=== PATIENT | male | born 1970 | race Caucasian/White ===

== ENCOUNTER 2024-12-12 22:00 | Emergency (ER) | payer OTHER, SELFPAY ==
[2024-12-12 22:04] VITALS: BP 169/109
[2024-12-12 22:48] LABS: Hematocrit 41.2 % (39.0-52.0); Hemoglobin 13.8 g/dL (13.0-18.0); Mean Corp Hgb Conc. 33.5 g/dL (33.0-37.0); Mean Corpuscular Volume 79.5 fL (80.0-94.0); Nucleated Red Blood Cells % 0 % (-); Platelet Count 211 10^3/uL (130-400); Red Cell Dist. Width 14.5 % (11.5-14.5)
[2024-12-12 23:08] LABS: Blood Urea Nitrogen 11 mg/dl (9-20); Calcium 9.4 mg/dl (8.4-10.2); Carbon Dioxide 23 mmol/L (22-30); Chloride 104 mmol/L (98-107); Glucose 179 mg/dl (70-99); Potassium 3.7 mmol/L (3.5-5.1); Sodium 138 mmol/L (135-145); eGFR > 60.00
[2024-12-13 00:24] VITALS: BP 140/94
--- NOTE | 2024-12-13 05:11 | ED.GENMED ---
History of Present Illness
General
Chief Complaint: Crisis Evaluation
Source: patient
Exam Limitations: none
Time Seen by Provider: 12/13/24 00:17
Nursing documentation reviewed up to this point in time: agreed with
History of Present Illness
History of Present Illness:
Note:
CHIEF COMPLAINT(S)
The patient, a 54-year-old male, presented due to an episode of suicidal ideation.
HISTORY OF PRESENT ILLNESS
The patient reports experiencing suicidal thoughts a couple of weeks ago and had contemplated a plan to hang himself. Recent stressors include a strained relationship with his , who has been drinking heavily. The patient isolated himself, and
police intervention occurred. The patient acknowledges the need for psychiatric evaluation and is considering voluntary admission to avoid involuntary commitment. 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
criminal mischief have exacerbated his distress. Additionally, the patient is experiencing profound stress due to having to face a court date soon. His son, a high school gigi, has been exposed to these distressing events.
PAST MEDICAL AND SURGICAL HISTORY
The patient is a known alcoholic and has a history of epilepsy and diabetes. He also reports having a heart condition.
SOCIAL DETERMINANTS AFFECTING HEALTH
The patient is dealing with significant stress due to job loss and legal issues. Alcohol use is regular, including daily intake and having had six drinks at a recent work event. The patient also smokes marijuana daily.
CHRONIC MEDICAL CONDITIONS SIGNIFICANTLY AFFECTING CARE
1. Alcohol use disorder
2. Epilepsy
3. Diabetes
4. Heart condition
MEDICATIONS
The patient takes 300 mg of lamotrigine twice a day for seizures, along with medications for diabetes, hypertension, and possibly heart condition.
SOCIAL HISTORY
Alcohol is consumed daily, with the last intake being six drinks at a work function. The patient also smokes marijuana daily and has a history of cigarette use, although it is not currently active.
PHYSICAL EXAM
General: Alert, no acute distress.
Skin: Warm, dry.
Head: Normocephalic, atraumatic.
Neck: Supple, trachea midline.
Eye Ears, nose, mouth and throat: Oral mucosa moist.
Cardiovascular: Normal peripheral perfusion, No edema.
Respiratory: Respirations are non-labored.
Gastrointestinal: Abdomen nondistended
Back: Normal range of motion, Normal alignment.
Musculoskeletal: Normal range of motion, normal strength.
Neurological: Alert and oriented to person, place, time, and situation, No focal neurological deficit observed.
Psychiatric: Cooperative, appropriate mood & affect.
PROBLEM LIST
Acute:
1. Suicidal ideation
2. Stress related to family and legal issues
Chronic:
1. Alcohol use disorder
2. Epilepsy
3. Diabetes
4. Heart condition
PLAN
- The patient is advised to sign himself in voluntarily for psychiatric evaluation to avoid involuntary commitment.
- Referral to a psychiatric facility for further evaluation and treatment.
DIFFERENTIAL DIAGNOSIS
The Differential Diagnosis includes, in no particular order and is not limited to:
1. Major depressive disorder
2. Bipolar disorder
3. Adjustment disorder with depressive mood
4. Alcohol use disorder with associated depressive symptoms
5. Anxiety disorder
6. Substance-induced mood disorder
7. Schizophrenia
8. Borderline personality disorder
9. Post-traumatic stress disorder
10. Organic mood disorder (related to epilepsy or other medical conditions)
Disposition:
SUMMARY OF ENCOUNTER
The patient, a 54-year-old male, presented with suicidal ideation following a recent job loss and impending legal issues requiring a court appearance. The patient has a history of past suicide attempts. During the consultation, it was determined
that he requires psychiatric care, and he has agreed to a voluntary admission to a psychiatric facility. The patient was advised that involuntary commitment would occur if he changed his decision.
DISPOSITION
The patient is to be transferred to a psychiatric facility for further evaluation and treatment voluntarily.
PLAN
Referral to a psychiatric facility for voluntary admission and evaluation.
PATIENT EDUCATION AND COUNSELING
The patient was counseled on the importance of seeking psychiatric evaluation to address his suicidal ideations and underlying stressors. He was informed about the procedures and support available to him at the psychiatric facility and advised on
the implications of refusing care.
MEDICAL DECISION MAKING
- Number and Complexity of Problems Addressed: Chronic conditions affecting care include alcohol use disorder, epilepsy, diabetes, and heart condition. Differential diagnosis suggests major depressive disorder, bipolar disorder, adjustment disorder
with depressive mood, alcohol use disorder with associated depressive symptoms, anxiety disorder, substance-induced mood disorder, schizophrenia, borderline personality disorder, post-traumatic stress disorder, and organic mood disorder.
- Care significantly affected by Social Determinants of Health: The patient is experiencing significant stress due to recent job loss and legal issues.
DIAGNOSIS
Major depressive disorder, recurrent episode, severe, without psychotic features (ICD-10: F33.2).
Alcohol use disorder, moderate (ICD-10: F10.20).
Review of Systems
Review of Systems
Allergies reviewed?: Yes
All Other Systems: ROS reviewed and negative except as documented in HPI and ROS
Psychiatric: Reports depression, anxiety and suicidal
Phy Exam
General Physical Exam
General Presentation: well appearing and no apparent distress
General Skin: warm and dry
General Habitus: normal
General Mental: alert
General Hydration: appears well hydrated
ENT Exam
ENT Exam: EOMI, pharynx normal, neck supple and normocephalic
Eye Exam
Eye Exam: PERRL, cornea clear and conjunctiva normal
Cardiovascular Exam
Cardiovascular Exam: regular rate/rhythm, no edema, no murmur and normal peripheral pulses
Pulmonary Exam
Pulmonary Exam: lungs clear, no respiratory distress, no rales, no crackles, no rhonchi, no stridor, no wheezing and no cough
Gastrointestinal Exam
Gastrointestinal Exam: normal bowel sounds, non tender, soft, no organomegaly, no pulsatile mass and non distended
Neurological Exam
Neurological Exam: alert, oriented x3, no motor deficits and speech normal
Musculoskeletal Exam
Musculoskeletal Exam: full ROM and no edema
Skin Exam
Skin Exam: normal color, warm/dry, no rash and no petechia
Psychiatric Exam
Psychiatric Exam: normal mood/affect
Course
Orders/Labs/Results
Orders:
Orders
12/12/24 22:22
Crisis Consult Urgent
Reason for Consult: + SI
12/12/24 22:41
Alcohol Urgent
Basic Metabolic Panel Urgent
Complete Blood Count/With Diff Urgent
Urine Drug Abuse Screen Urgent
Date Specimen was Collected: 12/12/24
Time Specimen was Collected: 22:23
12/12/24 23:55
ED Special Safety Observation ONCE
Observation level: One to Two
Abnormal Lab Results
12/12/24
22:41
MCV 79.5 L fL
(80.0-94.0)
MCH 26.6 L pg
(27.0-31.0)
Creatinine 0.6 L mg/dL
(0.7-1.3)
Glucose 179 H mg/dl
(70-99)
U Marijuana (THC) Screen Positive H
(Negative)
12/12/24 22:41
12/12/24 22:41
Vital Signs
Initial and Last Documented VS:
Initial Vital Signs
Temp Pulse Resp BP Pulse Ox
97.9 F 95 20 169/109 96
12/12/24 22:04 12/12/24 22:04 12/12/24 22:04 12/12/24 22:04 12/12/24 22:04
Last Documented Vital Signs
Temp Pulse Resp BP Pulse Ox
97.9 F 81 22 140/94 98
12/12/24 22:04 12/13/24 00:24 12/13/24 00:24 12/13/24 00:24 12/13/24 00:24
*Pulse Oximetry
SaO2: 98
Oxygen Mode of Delivery: Room air
Patient hypoxic: no
*Critical Care Note
Total Time (30-74mins, 75-104mins- exclusive of procedures): Not Applicable
ED Attending Note
-
Portions of this chart may have been created with voice recognition software.� Occasional wrong word or��sound alike� substitutions may have occurred due to the inherent limitations of voice recognition software.
Discharge Plan
Departure
Patient Disposition: Psych Facility
Date of Disposition: 12/13/24
Time of Disposition: 05:11
Condition: Fair
Discharge Problem:
Suicide attempt
Referrals:
Neel Portillo MD [Family Provider, [facility]]
Interventions
Interventions:
*Risk Screen - Suicide Last Done: 12/12/24 22:16
*General Assessment Last Done: 12/12/24 22:16
*Neglect/Abuse Screening Last Done: 12/12/24 22:16
*ED- Fall Risk Assessment Last Done: 12/12/24 22:16
*ED COVID-19 Vaccine History Last Done: 12/12/24 22:16
ED-Psychological Assessment Last Done: 12/12/24 22:52
Discharge Date and Time
Print Language: SINHALA
[2024-12-13 09:00] VITALS: BP 168/104; BMI 31.9
--- NOTE | 2024-12-13 09:00 | EDRN ---
this RN noticed that medication reconciliation was not performed for the patient and allergies were not recorded, this RN entered the pts room and the pt was calm, pleasant, and cooperative, the pt was agreeable to allowing this RN to obtain vital
signs, the pts blood pressure is elevated, Dr. Molina was notified and will also order AM medications, the pt offers no complaints at this time, the pts breakfast was ordered, awaiting for placement for the pt, will continue to monitor the pt closely
--- NOTE | 2024-12-13 09:41 | EDRN ---
the pts allergies were confirmed, this RN spoke to Dulce the pharmacist and will verify the pts daily medications
--- NOTE | 2024-12-13 10:46 | EDRN ---
Dr. Molina will be ordering the pts AM medications
[2024-12-13 11:37] VITALS: BP 168/104
[2024-12-13] MEDS: FLOMAX 0.4 MG TUBE (11:38)
[2024-12-13] MEDS: FARXIGA 10 MG PO (11:38)
[2024-12-13] MEDS: LAMICTAL 100 MG PO (11:38)
[2024-12-13] MEDS: GLUCOPHAGE 1000 MG PO (11:38)
[2024-12-13] MEDS: TOPROL XL 25 MG PO (11:38)
[2024-12-13] MEDS: PROTONIX 40 MG PO (11:38)
[2024-12-13 11:39] LABS: Glucose - Point of Care 227 mg/dl (70-99)
[2024-12-13 13:15] VITALS: BP 172/98
[2024-12-13 13:23] LABS: Glucose - Point of Care 124 mg/dl (70-99)
[2024-12-13 17:51] LABS: Glucose - Point of Care 142 mg/dl (70-99)
[2024-12-13] MEDS: LANTUS 0.2 UNITS SC (17:54)
[2024-12-13 18:49] VITALS: BP 167/95
[2024-12-13] MEDS: TYLENOL 650 MG PO (19:39)
[2024-12-13] MEDS: VALIUM 5 MG PO (19:40)
== END 2024-12-13 20:59 ==
LOC: EMR 22:00
PROVIDERS: CONSULT PHYSICIAN Psychiatry & Neurology Psychiatry; EMERGENCY PHYSICIAN Student in an Organized Health Care Education/Training Program; FAMILY PHYSICIAN Family Medicine
DX: T14.91XA Suicide attempt, initial encounter (principal); Y92.9 Unspecified place or not applicable; E11.9 Type 2 diabetes mellitus without complications; F10.20 Alcohol dependence, uncomplicated; F12.90 Cannabis use, unspecified, uncomplicated; F19.10 Other psychoactive substance abuse, uncomplicated; G40.909 Epilepsy, unspecified, not intractable, without status epilepticus; Z65.3 Problems related to other legal circumstances; Z87.891 Personal history of nicotine dependence
CPT/HCPCS: 99285; 80048; 80306; 82077; 82962; 85025; 99284

== ENCOUNTER 2025-01-19 16:01 | Emergency (ER) | payer OTHER, SELFPAY ==
[2025-01-19 16:09] VITALS: BP 204/117
--- NOTE | 2025-01-19 16:18 | ED.GENMED ---
History of Present Illness
General
Chief Complaint: Crisis Evaluation
Source: patient
Time Seen by Provider: 01/19/25 16:04
History of Present Illness
History of Present Illness:
54-year-old male presents to the emergency room with police after a 302 was filed with [facility]. Patient has a known history of bipolar disease. He spent quite some time at the [facility] recently after a suicide attempt in early
December. The 302 petition describes threatening behavior towards his family. Patient patient evidently left [facility] AGAINST MEDICAL ADVICE prior to finishing his treatment course. Patient is very aggravated and aggressive. He talks
about his rights being violated by being brought here. He feels that everyone around him is incompetent and not qualified. Patient describes being in [place] recently 'on the 6 floor' and being cleared by a psychiatrist there. Patient does
endorse aggressive behavior towards his family because 'I am very angry'.
Phy Exam
Physical Exam
Physical Exam:
General: Awake, Alert, Oriented X3. Highly agitated, pressured speech, flight of ideas
Vitals: Tachycardic and hypertensive
Head: Atraumatic
Eyes: Pupils equal, EOMI
Throat: Airway intact, no exudates
Neck: Trachea midline
Lungs: Clear and equal b/l
Heart: Regular rate, no murmurs
Abd: Soft, Nontender, No pulsatile mass
Neuro: Nonfocal
Skin: Warm, dry, no rash
Extremities: pulses equal b/l, no edema
Course
Orders/Labs/Results
Orders:
Orders
01/19/25 16:38
Haloperidol Lactate [Haldol] 5 mg IM NOW STA
01/19/25 16:40
diazePAM [Valium Injection] 5 mg IM NOW STA
01/19/25 16:44
Crisis Consult Urgent
Reason for Consult: 302
01/19/25 17:10
One to One Observation - Suicide/Violent [1:1 Observation - Suicide/ Violent Behavior] As Directed
Vital Signs
Initial and Last Documented VS:
Initial Vital Signs
Pulse Resp BP Pulse Ox
122 20 204/117 97
01/19/25 16:09 01/19/25 16:09 01/19/25 16:09 01/19/25 16:09
Last Documented Vital Signs
Temp Pulse Resp BP Pulse Ox
98.5 F 92 16 164/85 97
01/19/25 16:18 01/19/25 18:38 01/19/25 18:38 01/19/25 18:38 01/19/25 18:38
MDM/Problems Addressed
Differential Diagnosis Includes:
Acute psychosis, acute minerva, alcohol drug intoxication
MDM/Problems Addressed:
Patient is highly agitated but he is remaining in his room and is not physically threatening at this point. Plan will be to give him some time to calm down. I explained the 302 process to him. I think it is likely we will need to use medications
to help control his agitation but will give him some time to do that on his own.
2028: 02 was upheld. Patient's daily meds are ordered. He is much more calm at this point bed search underway
*Pulse Oximetry
SaO2: 97
Oxygen Mode of Delivery: Room air
Patient hypoxic: no
*Critical Care Note
Total Time (30-74mins, 75-104mins- exclusive of procedures): Not Applicable
ED Attending Note
-
Portions of this chart may have been created with voice recognition software.� Occasional wrong word or��sound alike� substitutions may have occurred due to the inherent limitations of voice recognition software.
Discharge Plan
Departure
Patient Disposition: Psych Facility
Date of Disposition: 01/19/25
Time of Disposition: 20:29
Condition: Fair
Discharge Problem:
Acute psychosis
Prescriptions:
No Action
metformin 1,000 mg Tablet
1,000 mg PO BID@0800,1700
dapagliflozin propanediol [Farxiga] 10 mg Tablet
10 mg PO DAILY
atorvastatin 80 mg tablet
80 mg PO HS
tamsulosin 0.4 mg capsule
0.4 mg PO DAILY
pantoprazole 40 mg tablet,delayed release (DR/EC)
40 mg PO DAILY
lamotrigine 100 mg tablet
100 mg PO DAILY
lamotrigine 100 mg tablet
200 mg PO HS
metoprolol tartrate 25 mg tablet
25 mg PO BID
insulin glargine-yfgn 100 unit/mL (3 mL) insulin pen
20 unit SC DAILY
Referrals:
UNKNOWN - PT DOES,NOT KNOW [Family Provider]
Interventions
Interventions:
ED-Psychological Assessment Last Done: 01/19/25 16:09
Discharge Date and Time
Print Language: UGANDAN
[2025-01-19] MEDS: VALIUM INJECTION 5 MG IM (16:46)
[2025-01-19] MEDS: HALDOL 5 MG IM (16:46)
[2025-01-19 18:38] VITALS: BP 164/85
--- NOTE | 2025-01-19 18:42 | W.PN.PSYC ---
Today's Communication / Plan
-
crisis to locate bed, make sure he gets his necessary lamotrigine as well as antipsychotics and sedative medication
Assessment/Plan
Assessment/Plan
54 yo with minerva, unclear how related to his brain injury this is, but clearly too impaired for outpatient treatment at present
Will uphold 302, bed search, antipsychotic and sedative medication
Subjective/Objective
Subjective
pt seen in consultation for assessment of 302. 302 filed by and childcare worker due to agitation, threats and aggressive behavior toward and son. Has history of bipolar disorder, just recently discharged from a psychiatric unit in .
[place] to which he had been committed following erratic behavior witnessed by police. Was discharged three days ago, did not fill prescriptions. Admits to being very angry with , and drinking alcohol.
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 Had embolization, then gamma knife irradiation (treated at [place] by Eber Barber, an epileptologist I know well.) Has been
on a variety of anticonvulsants (mentions keppra and zonisamide) but most successfully on lamotrigine. States he took it this morning (100 am 200 hs.)
States he has been doing well as outpatient with just the neurologist help but has spiraled out of control in November--fired from his job.
Born and raised in [place], graduated from [employer] with degree in secondary education. 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 Lives with and16 yo son
Objective
Vital Signs/Labs:
Vital Signs
Temp Pulse Resp BP Pulse Ox
98.5 F 92 16 164/85 97
01/19/25 16:18 01/19/25 18:38 01/19/25 18:38 01/19/25 18:38 01/19/25 18:38
Vital Signs
Temp Pulse Resp BP Pulse Ox
98.5 F 92 16 164/85 97
01/19/25 16:18 01/19/25 18:38 01/19/25 18:38 01/19/25 18:38 01/19/25 18:38
Mental Status Exam
Mental Status Exam
Very animated white male, pressured speech, irritable. Demands his three phone calls, plans to call his and his son and tell them off. insists that he just got out of a hospital and is fine. slamming papers down--not fine
[2025-01-19 20:41] LABS: Hematocrit 34.0 % (39.0-52.0); Hemoglobin 11.3 g/dL (13.0-18.0); Mean Corp Hgb Conc. 33.2 g/dL (33.0-37.0); Mean Corpuscular Volume 81.9 fL (80.0-94.0); Nucleated Red Blood Cells % 0 % (-); Platelet Count 165 10^3/uL (130-400); Red Cell Dist. Width 14.2 % (11.5-14.5)
[2025-01-19 21:07] LABS: Blood Urea Nitrogen 13 mg/dl (9-20); Calcium 9.3 mg/dl (8.4-10.2); Carbon Dioxide 25 mmol/L (22-30); Chloride 105 mmol/L (98-107); Glucose 142 mg/dl (70-99); Potassium 4.1 mmol/L (3.5-5.1); Sodium 136 mmol/L (135-145); eGFR > 60.00
[2025-01-20] MEDS: FLOMAX 0.4 MG PO (07:49)
[2025-01-20] MEDS: LAMICTAL 100 MG PO (07:49)
[2025-01-20] MEDS: PROTONIX 40 MG PO (07:49)
[2025-01-20] MEDS: LAMICTAL 200 MG PO (07:50)
[2025-01-20 07:54] LABS: Glucose - Point of Care 120 mg/dl (70-99)
[2025-01-20] MEDS: LOPRESSOR 25 MG PO (07:54)
[2025-01-20 08:09] VITALS: BP 179/84; BMI 29.9
[2025-01-20 10:36] LABS: COVID-19 Antigen Negative (Negative)
[2025-01-20 12:15] VITALS: BP 150/81
== END 2025-01-20 12:17 ==
LOC: EMR 16:01
PROVIDERS: Emergency Medicine; EMERGENCY PHYSICIAN Emergency Medicine
DX: F23 Brief psychotic disorder (principal); F31.9 Bipolar disorder, unspecified
CPT/HCPCS: 99285; 96372; 80048; 82077; 82962; 85025; 87811